=== PATIENT | male | born 1965 ===

== ENCOUNTER 2019-11-09 17:04 | Inpatient (IN) | payer SELFPAY ==
[~2019-11-09] VITALS: Ht 165.1 cm; Wt 121.4 kg
[2019-11-09 18:42] LABS: HEMATOCRIT 44.8 % (42.0-52.0); HEMOGLOBIN 14.8 g/dl (13.5-18.0); MEAN CELL VOLUME 86 fl (80.0-100.0); MEAN CORPUSCULAR HEMOGLOBIN 28 pg (27.0-31.0); MEAN CORPUSCULAR HGB CONC 33 g/dl (33.0-37.0); MEAN PLATELET VOLUME 9.5 fl (7.4-10.4); PLATELET COUNT 167 K/mm3 (130-400); RED BLOOD COUNT 5.24 M/mm3 (4.20-5.60); REDCELL DISTRIBUTION WIDTH-CV 13.4 % (11.5-14.5)
[2019-11-09 18:55] LABS: ALANINE AMINOTRANSFERASE 56 U/L (4-49); ALBUMIN 4.3 gm/dL (3.5-5.0); ALKALINE PHOSPHATASE 81 U/L (50-136); ANION GAP 9 mmol/L (7-16); AST,SGOT 27 U/L (15-37); BILIRUBIN,TOTAL 0.6 mg/dL (0.0-1.0); BLOOD UREA NITROGEN 11 mg/dL (9-20); CALCIUM 9.2 mg/dL (8.4-10.2); CARBON DIOXIDE 26 mmol/L (22-30); CHLORIDE 97 mmol/L (98-107); CREATININE, serum 0.98 (0.66-1.25); GLUCOSE 211 mg/dL (74-106); LIPASE 124 U/L (23-300); POTASSIUM 3.8 mmol/L (3.4-5.0); SODIUM 132 mmol/L (137-145); TOTAL PROTEIN 7.9 gm/dL (6.4-8.2)
[2019-11-09 19:07] LABS: C-REACTIVE PROTEIN 22.4 mg/dL (0.0-0.9); TROPONIN-I < 0.012 ng/mL (0.000-0.035)
[2019-11-09 19:21] LABS: COLLECTION METHOD CLEAN CATCH
[2019-11-09 19:28] LABS: MUCOUS Present /lpf; PH 5 (5-8); SQUAMOUS EPITHELIAL None Seen /hpf; URINE APPEARANCE Clear; URINE BACTERIA None Seen /hpf; URINE BILIRUBIN Negative (NEGATIVE); URINE BLOOD 1+ (NEGATIVE); URINE COLOR Yellow; URINE GLUCOSE Negative (NEGATIVE); URINE KETONE Negative (NEGATIVE); URINE LEUKOCYTE ESTERASE Negative (NEGATIVE); URINE NITRATE Negative (NEGATIVE); URINE PROTEIN(semi-quant) Negative (NEGATIVE); URINE RBC 0-2 /hpf; URINE UROBILINOGEN Negative (NEGATIVE)
[2019-11-09 19:39] LABS: BAND 3 % (0-10); LYMPHOCYTE 10 % (20.0-51.0); NEUTROPHILS 80 % (42.0-75.2); PLATELET ESTIMATE NORMAL (NORMAL)
[2019-11-09 19:40] LABS: HYPOCHROMIA 1+
[2019-11-10] VITALS (7 sets, daily range): BP systolic 114–155; BP diastolic 64–83; PULSE 92–114; TEMP 98.1–103
[2019-11-10 00:18] LABS: INR 1.3 (0.8-3.0); PROTHROMBIN TIME 14.1 SECONDS (9.7-12.8)
--- NOTE | 2019-11-10 01:00 | NUR ---
PT ADMITTED TO 306 WITH Dx OF R/O SEPSIS, POSSIBLE COVID-19. SEE 5 PAGE ASSESSMENT.
--- NOTE | 2019-11-10 02:43 | NUR ---
PT JUST CALLED STATING THE I.V. FLUIDS HAVE TO BE DISCONNECTED BECAUSE IT'S BOTHERING HIM AND PREVENTING HIM FROM SLEEPING. HE WAS INFORMED THAT WE AT LEAST NEED TO RUN THE ANTIBIOTICS IN FIRST.
[2019-11-10 08:14] LABS: HEMATOCRIT 41.5 % (42.0-52.0); HEMOGLOBIN 13.6 g/dl (13.5-18.0); MEAN CELL VOLUME 86 fl (80.0-100.0); MEAN CORPUSCULAR HEMOGLOBIN 28 pg (27.0-31.0); MEAN CORPUSCULAR HGB CONC 33 g/dl (33.0-37.0); PLATELET COUNT 158 K/mm3 (130-400); RED BLOOD COUNT 4.83 M/mm3 (4.20-5.60); REDCELL DISTRIBUTION WIDTH-CV 13.6 % (11.5-14.5)
[2019-11-10 08:17] LABS: ALBUMIN 3.7 gm/dL (3.5-5.0); BILIRUBIN,TOTAL 0.5 mg/dL (0.0-1.0); CALCIUM 8.5 mg/dL (8.4-10.2); CREATININE, serum 0.91 (0.66-1.25); POTASSIUM 3.6 mmol/L (3.4-5.0)
[2019-11-10 09:51] LABS: BAND 17 % (0-10); LYMPHOCYTE 14 % (20.0-51.0); NEUTROPHILS 58 % (42.0-75.2)
[2019-11-10 09:54] LABS: PLATELET ESTIMATE NORMAL (NORMAL)
--- NOTE | 2019-11-10 16:22 | NUR ---
PER DR KENNEY: tAKE PATIENT OUT OF DROPLET/CONTACT ISOLATION D/T COVID 19 TEST BEING NEGATIVE.
--- NOTE | 2019-11-10 20:49 | NUR ---
Assessment complete. Sitting up on bedside, watching television. C/O headache. Denies other discomfort/pain. Refuses lovenox and insulin. Denies needs at this time.
[2019-11-11 00:04] VITALS: BP 145/92; PULSE 96; TEMP 99.5
[2019-11-11 03:41] VITALS: BP 153/89; PULSE 87; TEMP 98.9
[2019-11-11 06:19] LABS: BASO % 0.3 % (0.0-2.0); EOS # 0.2 (0.0-0.7); EOS % 1.7 % (0-4.0); GRAN # 8.6 (1.4-6.5); GRAN % 69.7 % (42.2-75.2); HEMATOCRIT 45.4 % (42.0-52.0); LYMPH # 2.2 (1.2-3.4); LYMPH % 17.8 % (20.0-51.0); MEAN CELL VOLUME 86 fl (80.0-100.0); MEAN CORPUSCULAR HEMOGLOBIN 28 pg (27.0-31.0); MEAN CORPUSCULAR HGB CONC 33 g/dl (33.0-37.0); MEAN PLATELET VOLUME 9.7 fl (7.4-10.4); MONO # 1.3 (0.1-0.6); MONO % 10.2 % (1.7-9.3); PLATELET COUNT 161 K/mm3 (130-400); RED BLOOD COUNT 5.28 M/mm3 (4.20-5.60); REDCELL DISTRIBUTION WIDTH-CV 13.5 % (11.5-14.5)
[2019-11-11 06:36] LABS: ALBUMIN 3.8 gm/dL (3.5-5.0); BILIRUBIN,TOTAL 0.5 mg/dL (0.0-1.0); CREATININE, serum 0.83 (0.66-1.25); MAGNESIUM 2.2 mg/dL (1.6-2.3); POTASSIUM 3.6 mmol/L (3.4-5.0); TOTAL PROTEIN 7.5 gm/dL (6.4-8.2)
[2019-11-11 07:33] VITALS: BP 132/98; PULSE 98; TEMP 97.8
[2019-11-11] MEDS ORDERED: OMNICEF 300MG300 MG PO (09:47)
--- NOTE | 2019-11-11 10:06 | NUR ---
Pt awake and alert upon entry this morning, no C/O pain at this time, shift assessments complete, left Pt call light in reach, bed in lowest position.
--- NOTE | 2019-11-11 11:37 | NUR ---
Pt discharged to home, discussed discharge packet with Pt, answered all questions. Pt escorted to entrance, Pt wanted to wait at entrance for his transportation to arrive.
== END 2019-11-11 11:15 | disposition home or self-care (01) | DRG 872 ==
LOC: COL.ER 17:04 → EDBD 17:05 → COL.ER 17:05 → MEDICAL 21:08 → COL.ER 21:08 → MEDICAL 22:04
PROVIDERS: Emergency Medicine; Internal Medicine; Physician Assistant; ADMIT Student in an Organized Health Care Education/Training Program
DX: A41.9 Sepsis, unspecified organism (principal); E87.1 Hypo-osmolality and hyponatremia; R65.20 Severe sepsis without septic shock; E11.65 Type 2 diabetes mellitus with hyperglycemia; K76.0 Fatty (change of) liver, not elsewhere classified; I25.10 Atherosclerotic heart disease of native coronary artery without angina pectoris; Z20.828 Contact with and (suspected) exposure to other viral communicable diseases
CPT/HCPCS: 99223-AI; 99232-AI; 99239; J0456; J0696; J7030; J7050; Q9967